=== PATIENT | female | born 1940 | race Caucasian/White ===

== ENCOUNTER → 2016-09-01 | Outpatient (CLI) | payer OTHER ==
--- NOTE | 2016-09-01 09:32 | US ---
Ultrasound of the Abdomen Limited History: Alcoholic cirrhosis. Ascites. Comparison: January 2016 Findings: Gallbladder: Multiple mobile gallstones identified near the gallbladder neck region. No gallbladder W all thickening, or pericholecystic fluid. Common bile duct is 3 mm in diameter which is normal. Liver: Coarse in echogenicity without definite focal lesions and measures 16 cm in length. No ascites . Main portal vein is patent. Renal: Right kidney measures 10 x 5 x 5 cm without hydronephrosis. Pancreas: Homogeneous without peripancreatic fluid. Aorta: Visualized upper abdominal aorta demonstrates no aneurysm. Impression: 1. Cholelithiasis with multiple mobile gallstones. 2. No gallbladder wall thickening, pericholecystic fluid or biliary ductal dilation. 3. Coarse hepatic parenchyma suggesting cirrhosis without evidence of definite focal masses, hepatome nadiya, or ascites.
== END ==
LOC: FIMAGING 08:21
PROVIDERS: ATTEND Internal Medicine
DX: K80.20 Calculus of gallbladder without cholecystitis without obstruction (principal); K76.89 Other specified diseases of liver

== ENCOUNTER → 2017-05-18 | Outpatient (CLI) | payer OTHER | LOC: FIMAGING 07:18 | PROVIDERS: ATTEND Internal Medicine | DX: K70.31 Alcoholic cirrhosis of liver with ascites (principal); K80.20 Calculus of gallbladder without cholecystitis without obstruction ==

== ENCOUNTER → 2017-05-19 | Outpatient (CLI) | payer OTHER | LOC: FIMAGING 14:18 | PROVIDERS: ATTEND Internal Medicine Geriatric Medicine | DX: Z12.31 Encounter for screening mammogram for malignant neoplasm of breast (principal); Z80.3 Family history of malignant neoplasm of breast | CPT/HCPCS: G0202 ==

== ENCOUNTER → 2017-10-27 | Outpatient (CLI) | payer OTHER | LOC: FIMAGING 09:39 | PROVIDERS: ATTEND Internal Medicine | DX: K70.30 Alcoholic cirrhosis of liver without ascites (principal); K80.20 Calculus of gallbladder without cholecystitis without obstruction ==

== ENCOUNTER 2017-11-07 15:35 | Observation (INO) | payer OTHER ==
--- NOTE | 2017-11-07 15:47 | CPEKG ---
Heart Rate: 73 RR Interval: 822 P-R Interval: 180 QRSD Interval: 108 QT Interval: 464 QTC Interval: 512 P [place]: 45 QRS [place]: -22 T Wave [place]: 35 EKG Severity - ABNORMAL ECG - EKG Impression: SINUS RHYTHM Electronically Signed By: Alexandro Gerard 07-Nov-2017 16:01:21
[2017-11-07] MEDS ORDERED: NS 1,000 ML IV ONE (15:48)
--- NOTE | 2017-11-07 15:55 | EDPHY ---
H & P Stated Complaint: fell 45mins ago. was walking with unsteady gate. now has slurred speech Time Seen by Provider: 11/07/17 15:41 HPI/ROS: CHIEF COMPLAINT: Slurred speech HISTORY OF PRESENT ILLNESS: The patient is a 77-year-old female with a history of alcoholism and liver disease who comes to the emergency department with slurred speech and left-sided facial droop. According to her he noticed around 1:00 p.m. That she seemed wobbly and had some slurred speech. She layed down to take a nap. About 45 min ago while getting out of bed she fell and at this point decided to bring her to the ER. They deny bleeding disorders. She is not on anticoagulants. No external signs of trauma. Denies headache. No vomiting. No chest pain. REVIEW OF SYSTEMS: Constitutional: denies: chills, fever, recent illness, recent injury EENTM: denies: blurred vision, double vision, nose congestion Respiratory: denies: cough, shortness of breath Cardiac: denies: chest pain, irregular heart rate, lightheadedness, palpitations Gastrointestinal/Abdominal: denies: abdominal pain, diarrhea, nausea, vomiting, blood streaked stools Genitourinary: denies: dysuria, frequency, hematuria, pain Musculoskeletal: denies: joint pain, muscle pain Skin: denies: lesions, rash, jaundice, bruising Neurological: See HPI Hematologic/Lymphatic: denies: blood clots, easy bleeding, easy bruising Immunologic/allergic: denies: HIV/AIDS, transplant EXAM: GENERAL: Well-appearing, well-nourished and in no acute distress. HEAD: Atraumatic, normocephalic. EYES: Pupils equal round and reactive to light, extraocular movements intact, sclera anicteric, conjunctiva are normal. ENT: TMs normal, nares patent, oropharynx clear without exudates. Moist mucous membranes. NECK: Normal range of motion, supple without lymphadenopathy or JVD. LUNGS: Breath sounds clear to auscultation bilaterally and equal. No wheezes rales or rhonchi. HEART: Regular rate and rhythm without murmurs, rubs or gallops. ABDOMEN: Soft, nontender, normoactive bowel sounds. No guarding, no rebound. No masses appreciated. BACK: No CVA tenderness, no spinal tenderness, step-offs or deformities EXTREMITIES: Normal range of motion, no pitting or edema. No clubbing or cyanosis. NEUROLOGICAL: Left-sided facial droop and slurred speech very slight pronator drift on the left. Gait not tested. 5/5 strength, normal movement in all extremities, normal sensation in all 4 extremities NIH stroke score PSYCH: Normal mood, normal affect. SKIN: Warm, dry, normal turgor, no visible rashes or lesions. Source: Patient - Personal History Current Tetanus/Diphtheria Vaccine: Unsure Current Tetanus Diphtheria and Acellular Pertussis (TDAP): Unsure - Medical/Surgical History Hx Asthma: No Hx Chronic Respiratory Disease: No Hx Diabetes: No Hx Cardiac Disease: Yes Hx Renal Disease: No Hx Cirrhosis: No Hx Alcoholism: No Hx HIV/AIDS: No Hx Splenectomy or Spleen Trauma: No Other PMH: MEDICAL- HTN, HLD, HYPOTHYROID. SURGICAL- HYSTERECTOMY, ORTHO, PROLAPSED INTESETINE - Social History Smoking Status: Never smoked Constitutional: Initial Vital Signs Temperature (C) 36.2 C 11/07/17 15:55 Heart Rate 75 11/07/17 15:55 Respiratory Rate 11 L 11/07/17 15:55 Blood Pressure 122/70 H 11/07/17 15:55 O2 Sat (%) 97 11/07/17 15:55 O2 Delivery Mode Room Air Allergies/Adverse Reactions: hydrocodone Allergy (Unknown, Verified 11/07/17 15:37) Home Medications: Medication Instructions Recorded Cholecalciferol Vit D3 [Vitamin D3 2,000 units PO DAILY 11/07/17 (*)] Furosemide [Lasix 20 MG (*)] 20 mg PO DAILY 11/07/17 Herbals/Supplements -Info Only 1 ea PO DAILY 11/07/17 Levothyroxine [Synthroid 75 mcg 75 mcg PO DAILY06 11/07/17 (*)] Pantoprazole Sodium [Protonix 40mg 40 mg PO DAILY 11/07/17 (*)] Rifaximin [Xifaxan] 550 mg PO BID 11/07/17 Spironolactone [Aldactone 50 MG 50 mg PO DAILY 11/07/17 (RX)] Medical Decision Making - Diagnostics EKG Interpretation: An EKG obtained and was read and documented in trace view. Please see trace view for full reading and report. Sinus rhythm, no acute ischemic changes Imaging Results: Imaging Impressions Chest X-Ray 11/07/17 15:42 Impression: Atherosclerotic disease. Nothing acute identified. Head CT 11/07/17 15:42 Impression: 1. No acute intracranial findings. 2. Diffuse cerebral atrophy, with periventricular and subcortical low attenuation consistent with chronic microvascular ischemic gliosis. Findings discussed with Alexandro Gerard M.D., on November 07, 2017 at 1600. Head CTA 11/07/17 15:47 Impression: 1. No acute vascular findings. If symptoms persist and clinical suspicion warrants, consider MRI. 2. 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 3. 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 4. Additional findings, as above. Stenoses are calculated using [place] Symptomatic Carotid Endarterectomy Trial (NASCET) criteria. Findings discussed with Alexandro Gerard M.D., on November 07, 2017 at 1630. Neck CTA 11/07/17 15:47 Impression: 1. No acute vascular findings. If symptoms persist and clinical suspicion warrants, consider MRI. 2. 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 3. 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 4. Additional findings, as above. Stenoses are calculated using [place] Symptomatic Carotid Endarterectomy Trial (NASCET) criteria. Findings discussed with Alexandro Gerard M.D., on November 07, 2017 at 1630. Imaging: Discussed imaging studies w/ manager call center Radiologist ED Course/Re-evaluation: Very shortly after patient arrival I spoke with Dr. Elliott from [facility]. He will evaluate the patient when she gets back from CT scan. The patient's noncontrast is negative. They did not do the angio because her creatinine is slightly elevated. I requested that they do it any ways. We will hydrate her. Also spoke further with the who states that he saw her acting normally at noon but that around 12:30 was when she 1st had some imbalance. They deny any alcohol use today. 4:[address] Elliott feels that the patient is not a tPA candidate. There is not clear time of onset. The last time her interactive her and her was around 9:00 a.m. Before he went to work out. Her CT angio is negative other than a small incidental aneurysm. He recommends aspirin admission and MRI. 4:35 p.m. I discussed the case with Dr. Yolanda Roque who will admit to the medical service. 4:50 p.m. Despite telling me earlier that she had not been drinking today alcohol level is 312. Differential Diagnosis: Partial list of the Differential diagnosis considered include but were not limited to; CVA, hemorrhage, aneurysm, hypoglycemia, intoxication and although unlikely based on the history and physical exam, I also considered infection, trauma. Critical Care Time: Critical care time spent by me, Dr. Gerard exclusive with this patient was 45 minutes, exclusive of the PA time exclusive of procedures. The organ system that was at risk was neurologic and I gave diagnosis, consultation and admission to prevent worsening of the patient's condition - Data Points Laboratory Results: Laboratory Results 11/07/17 15:47 11/07/17 15:47 11/07/17 11/07/17 11/07/17 15:48 15:47 15:47 WBC RBC Hgb POC Hgb 11.2 gm/dL L gm/dL (12.6-16.3) Hct POC Hct 33 % L % (38-47) MCV MCH MCHC RDW Plt Count MPV Neut % (Auto) Lymph % (Auto) [place] % (Auto) Eos % (Auto) Baso % (Auto) Nucleat RBC Rel Count Absolute Neuts (auto) Absolute Lymphs (auto) Absolute Monos (auto) Absolute Eos (auto) Absolute Basos (auto) Absolute Nucleated RBC Immature Gran % Immature Gran # PT INR APTT POC Sodium 137 mEq/L mEq/L (135-145) Sodium 139 mEq/L mEq/L (135-145) POC Potassium 3.9 mEq/L mEq/L (3.3-5.0) Potassium 4.3 mEq/L mEq/L (3.5-5.2) POC Chloride 101 mEq/L mEq/L (97-110) Chloride 101 mEq/L mEq/L (97-110) Carbon Dioxide 18 mEq/l L mEq/l (22-31) Anion Gap 20 mEq/L H mEq/L (8-16) POC BUN 26 mg/dL H mg/dL (7-23) BUN 26 mg/dL H mg/dL (7-23) Creatinine 1.4 mg/dL H mg/dL (0.6-1.0) POC Creatinine 1.7 mg/dL H mg/dL (0.6-1.0) Estimated GFR 36 Glucose 91 mg/dL mg/dL (70-100) POC Glucose 101 mg/dL H mg/dL (70-100) Calcium 9.0 mg/dL mg/dL (8.5-10.4) Total Bilirubin 3.8 mg/dL H mg/dL (0.1-1.4) Conjugated Bilirubin 2.3 mg/dL H mg/dL (0.0-0.5) Unconjugated Bilirubin 1.5 mg/dL H mg/dL (0.0-1.1) AST 81 IU/L H IU/L (14-46) ALT 55 IU/L H IU/L (9-52) Alkaline Phosphatase 73 IU/L IU/L (38-126) Troponin I < 0.012 ng/mL ng/mL (0.000-0.034) Total Protein 7.4 g/dL g/dL (6.3-8.2) Albumin 3.4 g/dL L g/dL (3.5-5.0) Ethyl Alcohol 312 mg/dL H mg/dL (0-10) 11/07/17 11/07/17 15:47 15:47 WBC 5.34 10^3/uL 10^3/uL (3.80-9.50) RBC 3.61 10^6/uL L 10^6/uL (4.18-5.33) Hgb 10.0 g/dL L g/dL (12.6-16.3) POC Hgb Hct 30.7 % L % (38.0-47.0) POC Hct MCV 85.0 fL fL (81.5-99.8) MCH 27.7 pg L pg (27.9-34.1) MCHC 32.6 g/dL g/dL (32.4-36.7) RDW 18.9 % H % (11.5-15.2) Plt Count 77 10^3/uL L 10^3/uL (150-400) MPV 11.7 fL fL (8.7-11.7) Neut % (Auto) 60.1 % % (39.3-74.2) Lymph % (Auto) 26.2 % % (15.0-45.0) [place] % (Auto) 7.9 % % (4.5-13.0) Eos % (Auto) 4.1 % % (0.6-7.6) Baso % (Auto) 1.3 % % (0.3-1.7) Nucleat RBC Rel Count 0.0 % % (0.0-0.2) Absolute Neuts (auto) 3.21 10^3/uL 10^3/uL (1.70-6.50) Absolute Lymphs (auto) 1.40 10^3/uL 10^3/uL (1.00-3.00) Absolute Monos (auto) 0.42 10^3/uL 10^3/uL (0.30-0.80) Absolute Eos (auto) 0.22 10^3/uL 10^3/uL (0.03-0.40) Absolute Basos (auto) 0.07 10^3/uL 10^3/uL (0.02-0.10) Absolute Nucleated RBC 0.00 10^3/uL 10^3/uL (0-0.01) Immature Gran % 0.4 % % (0.0-1.1) Immature Gran # 0.02 10^3/uL 10^3/uL (0.00-0.10) PT 18.7 SEC H SEC (12.0-15.0) INR 1.55 H (0.83-1.16) APTT 37.6 SEC SEC (23.0-38.0) POC Sodium Sodium POC Potassium Potassium POC Chloride Chloride Carbon Dioxide Anion Gap POC BUN BUN Creatinine POC Creatinine Estimated GFR Glucose POC Glucose Calcium Total Bilirubin Conjugated Bilirubin Unconjugated Bilirubin AST ALT Alkaline Phosphatase Troponin I Total Protein Albumin Ethyl Alcohol Medications Given: Sodium Chloride (Ns) 1,000 mls @ 100 mls/hr IV CONT MADELIN Stop: 11/08/17 03:29 Last Admin: 11/07/17 18:33 Dose: 1,000 mls Discontinued Medications Aspirin (Aspirin Rectal) 300 mg [facility] EDNOW ONE Stop: 11/07/17 16:39 Last Admin: 11/07/17 16:44 Dose: 300 mg Sodium Chloride (Ns) 1,000 mls @ 500 mls/hr IV EDNOW ONE PRN Reason: Protocol Stop: 11/07/17 17:47 Last Admin: 11/07/17 15:56 Dose: 1,000 mls Point of Care Test Results: 11/07/17 15:48 POC Sodium 137 POC Potassium 3.9 POC Chloride 101 POC BUN 26 H POC Creatinine 1.7 H POC Glucose 101 H Departure - Departure Disposition: [facility] Inpatient Acute Clinical Impression: Acute ischemic stroke Condition: Fair
[2017-11-07 16:00] LABS: PLATELET COUNT 77 10^3/uL (150-400)
[2017-11-07] MEDS ORDERED: IOPAMIDOL (ISOVUE 370) 100 ML BTL IV ONE (16:01)
[2017-11-07 16:07] LABS: INR 1.55 (0.83-1.16); PROTIME(PATIENT) 18.7 SEC (12.0-15.0)
[2017-11-07] MEDS ORDERED: ASPIRIN RECTAL 300 MG SUPP PR ONE (16:38)
[2017-11-07] MEDS ORDERED: LORazepam 2 MG/ML INJ IVP PRN (17:20)
[2017-11-07] MEDS ORDERED: LORazepam 1 MG TAB PO PRN (17:20)
[2017-11-07] MEDS ORDERED: ONDANSETRON 4 MG/2 ML VIAL IVP PRN (17:22)
[2017-11-07] MEDS ORDERED: NS 1,000 ML IV SCH (17:30)
--- NOTE | 2017-11-07 18:07 | GHP ---
[f rep st] HISTORY AND PHYSICAL DATE OF ADMISSION: 11/07/2017 CHIEF COMPLAINT: Facial droop and slurred speech. HISTORY OF PRESENT ILLNESS: The patient is a 77-year-old female, who presents to the emergency room when noticed by her to have slurred speech and a left facial droop. He last saw her normal a t 9 a.m. She subsequently went out with some girlfriends whom she calls her "coffee clique" and retu rned home. At that time, noticed by her at 1 p.m. to have some slurred speech. She lied liya n for a nap and woke up at 3 o'clock at which time, she fell and had obvious deficits so they came to the emergency room. Emmett Ruiz was called by the ER and given the timeline, no tPA was indicated. Jeremy márquez was given an aspirin. She adamantly denies any alcohol use and has known alcohol cirrhosis and she quit drinking when she was diagnosed. Despite this, her alcohol level on presentation was 312. On previous admissions she has admitted to us that she drank alcohol during the day while her wa s at work and was not truthful with him regarding her alcohol use. PAST MEDICAL HISTORY: 1. Alcohol cirrhosis. 2. Hypertension. 3. Thrombocytopenia due to cirrhosis. 4. Hyperlipidemia. 5. C diff colitis. 6. Chronic kidney disease. PAST SURGICAL HISTORY: Hysterectomy. MEDICATIONS: Please see computer record for full detailed list. ALLERGIES: Hydrocodone. SOCIAL HISTORY: No smoking. Known history of heavy alcohol use. Denies active use despite having a very positive alcohol level. Lives with her . Previous history of non truthfulness with her regarding alcohol use. REVIEW OF SYSTEMS: Complete review of systems obtained. Review of systems negative for Constitution al, HEENT, GI, Pulmonary, Cardiovascular, , Hematology, Skin, Muscular, Endocrine, Psych except for positives and negatives as in her HPI. FAMILY HISTORY: Positive for colon cancer in her sister in her 40s who eventually of metastatic disease. PHYSICAL EXAMINATION: GENERAL: Well-developed, well-nourished female in no acute distress. VITAL S IGNS: Temperature 36.2, pulse 73, blood pressure 121/58, satting 95% on room air. HEENT: Eye: Nor mal conjunctivae, pupils reactive to light. ENT: Normal ears, nose. Hearing intact. Normal teeth. Oropharynx moist. NECK: Trachea midline. No thyromegaly. CHEST: Normal respiratory effort. JAH NGS: Clear to auscultation bilaterally. CARDIOVASCULAR: Regular rhythm. No murmur. No extremity edema. ABDOMEN: Soft, nontender. No hepatosplenomegaly. SKIN: Warm, dry, intact. No rash. She has spider telangiectasias on her chest. MUSCULOSKELETAL: No cyanosis or clubbing. Strength is 5/5 upper and lower extremities. NEURO: Cranial nerve exam she has an obvious left facial droop. Her tongue deviates to the right. She has very slurred speech. Somewhat rambling and nonsensical. Norm al sensation to light touch. PSYCH: Awake, alert, answers questions. Rambling. Seems somewhat dis organized in thought. Poor historian, cooperative. LABORATORY DATA: White count 5.34, hematocrit 30.7, platelets 77. Sodium 137, potassium 3.9, chlori de 101, bicarb 18, BUN 26, creatinine 1.4, glucose 101. Troponins negative. INR is 1.55. Alcohol l evel is 312. LFTs are pending. EKG viewed by me. My personal interpretation is normal sinus rhythm with no ST-T wave changes. IMAGING DATA: Chest x-ray is negative. Head CT is negative. CT angiogram of the head and neck show s an incidental 4 mm anterior communicating artery aneurysm. ASSESSMENT/PLAN: 1. Acute stroke. She has an obvious left facial droop and tongue deviation so I do think there has been an acute neurological event. Of course, this is difficult to tease out with slurred speech that may be present due to her alcohol intoxication. Will check an MRI of her brain. Will watch her on telemetry and check an echocardiogram. Will start her on a baby aspirin which I think will need to b e continued despite her known chronic thrombocytopenia. Will check a lipid panel in the morning. Ho wever, she has been on a statin in the past and had to be discontinued due to her alcohol cirrhosis. 2. Alcohol intoxication. She adamantly denied any alcohol use in front of her , but I think we need to re discuss this with her when he is not present. Clearly she has ongoing alcohol use and is not truthful with him regarding her intake. Will start intravenous thiamine and place her on a [facility] Withdrawal Assessment protocol. Clearly slurred speech may have a contribution of a lcohol intoxication. 3. Acute anterior communicating artery brain aneurysm. This is an incidental finding on CTA. She s hould follow up with Neurosurgery as an outpatient. 4. Alcohol cirrhosis. Continue Lasix and spironolactone. She is also on Rifaximin for presumed his tory of hepatic encephalopathy. Will check an ammonia in the morning. 5. Chronic kidney disease. Her creatinine is at baseline. She received intravenous contrast in the emergency room. Will give her a liter of intravenous fluid to flush the kidneys, but subsequent to that, resume her usual diuretics. CODE STATUS: Full. ADMISSION STATUS: 1. Will admit to observation. Reevaluate tomorrow regarding ongoing need for hospitalization. 2. DVT prophylaxis. Will avoid pharmacologic prophylaxis as she has thrombocytopenia and an elevate d INR at baseline, and we are starting an aspirin for stroke prevention as discussed above. /[id number]/MODL
[2017-11-07] MEDS: RIFAXIMIN 550 MG TAB PO SCH (23:09)
[2017-11-08 04:54] LABS: PLATELET COUNT 64 10^3/uL (150-400)
[2017-11-08] MEDS ORDERED: LEVOTHYROXINE 75 MCG TAB PO SCH (06:00)
[2017-11-08] MEDS ORDERED: FUROSEMIDE 20 MG TAB PO SCH (09:00)
[2017-11-08] MEDS ORDERED: SPIRONOLACTONE 50 MG TAB PO SCH (09:00)
[2017-11-08] MEDS ORDERED: PANTOPRAZOLE SODIUM 40 MG TAB PO SCH (09:00)
[2017-11-08] MEDS ORDERED: THIAMINE HCL 500 MG in NS 500 ML IV SCH (09:00)
[2017-11-08] MEDS ORDERED: ASPIRIN 81 MG CHEWABLE TAB PO SCH (09:00)
--- NOTE | 2017-11-08 09:20 | GCON ---
[f rep st] CONSULTATION NEUROLOGIC CONSULTATION REFERRING PHYSICIAN: Yolanda Roque MD HISTORY OF PRESENT ILLNESS: The patient is a 77-year-old woman who I am asked to see in neurologic c onsultation regarding acute neurologic symptoms that started yesterday. History is obtained from the patient and her as well as review of the emergency room records and the history and physical from Dr. Roque. Basically, the patient has a long history of struggling with alcoholism. Yesterday , she said that she was noticed to have some slurred speech and some drooping of her left face by her . He had seen her in her normal state around 9 a.m. and then the patient says she had tried to move from the couch to the coffee table and fell. She said she could not get up. The falling was around 3 p.m.. Earlier around 1 p.m., there was some slurring of speech that the had notice d. She came to the emergency room as a potential stroke alert and was ruled out based on some uncert ainty of the exact timeline and she did not have any large vessel occlusions. She did not receive tP A and was given aspirin. She had initially denied alcohol use, but then said she did drink some the day of this event and told me she had just a little bit of gin with a soft drink, but her blood alcoh ol level was 312, and inconsistent with just a small amount of alcohol. She does have a history of a lcoholic cirrhosis. She then later was able to say that she was uncomfortable admitting the alcohol use and had been not telling her about that apparently. Since admission, she has felt better. She does not think her speech is still abnormal. She does not describe focal numbness or weakness. When she could not get up yesterday, she was not aware of exac tly why. PAST MEDICAL HISTORY: 1. Alcoholic cirrhosis and chronic alcoholism with some continuing alcohol consumption to excessive amounts. 2. Hypertension has been minimal. 3. Chronic thrombocytopenia. 4. Hyperlipidemia. 5. Chronic kidney disease. 6. She has a history of hysterectomy. ALLERGIES: Hydrocodone. SOCIAL HISTORY: Alcoholism with ongoing challenges. No smoking currently. FAMILY HISTORY: Family history of colon cancer. REVIEW OF SYSTEMS: Otherwise, an unremarkable 10-point review of systems. PHYSICAL EXAMINATION: VITAL SIGNS: Blood pressure is 134/60. She was not orthostatic. Heart rate o f 83, pulse of 16, respirations 16, temperature 37. GENERAL: In general, she is a well-developed wo man lying in the bed in no acute distress. NECK: Supple with no bruits or masses. CARDIAC: Regula r rate and rhythm. No murmur. NEUROLOGIC: She is awake, alert, and oriented to person, place, and time and general situation. Pupils are 3 mm and reactive. Extraocular movements are intact. No vis ual field loss. Normal facial sensation and movement. As best I can tell, except for very subtle we akness of the left corner of the mouth, but I am not sure how pathologic that actually is. The motor exam reveals normal muscle bulk and tone with 5/5 strength. Sensation is preserved for temperature and light touch. She is able to stand independently. Reflexes 1+. LABORATORY STUDIES: White count currently of 3,000, platelet count of 64,000, hematocrit is 25%, blo od chemistry shows some hyperbilirubinemia with normal sodium. BUN 23, creatinine 1.2. Mild elevati on of liver enzymes at 81 and 55 for the AST and ALT, respectively. Albumin is low at 2.6. Total ch olesterol 122, LDL cholesterol of 79, HDL 24. Her tox screen showed the alcohol level of 312. INR e levated at 1.55. The echocardiogram results are pending, but has been performed. CT angiogram of the head and neck does not reveal any hemodynamically significant stenosis. 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 Brain MRI and head CT were obtained, neither of which shows evidence of acute stroke or hemorrhage, b ut significant atrophy and white matter disease is present. No arrhythmias on monitoring so far. IMPRESSION: Today's 70 minute total floor time consisted of [id number] discussion of greater than 50% of that time as well as evaluation of her condition and strategies and differential diagnostic di scussions. The patient might have experienced transient ischemic attack, but it is very hard to say at this point. The negative MRI and CT argue against acute stroke and the subtlety of the left lower facial asymmetry is just that. She has risk factors certainly for stroke. She is intoxicated by he r blood alcohol level of 310 and clearly has some more challenges to deal with, with regard to that. This alone could contribute to having some slurred speech and some of her trouble getting up from th e ground without focal features. There are no significant stenoses on the CT angiogram. The inciden michelle finding of the small anterior communicating artery aneurysm can be monitored with a followup scan in about 1 year. There are no signs of alcohol withdrawal at this point, but that has to be monitor ed per the hospitalist team. She clearly needs more support for ceasing her alcohol use with the end -organ damage she already has and ongoing risk factors. Daily aspirin would be appropriate for adriano bell stroke prophylaxis. I would not add a statin at this point for her LDL level of 78. She has li nik disease as well, which would be a relative contraindication. Once she is cleared by the therapy group, then she can have disposition which will most likely be home, and then have follow up with me in the office in 1 month to monitor her progress to make sure she is making an ongoing recovery. Her NIH stroke scale would be a 1 based on the subtle left facial droop. /[id number]/MODL
[2017-11-08] MEDS: RIFAXIMIN 550 MG TAB PO SCH (10:36)
--- NOTE | 2017-11-08 12:06 | ECHO ---
[email or web address] [address] [address] Main: [phone] Fax: Transthoracic Echocardiogram Name: MARK CARTER MR#: [id number] Study Date: 11/08/2017 Study Time: 07:44 AM Date of : 1940 Age: 77 year(s) Height: 167.6 cm (66 in.) Weight: 68.04 kg (150 lb.) BSA: 1.77 m2 Gender: Female Examination: Echo Indication: ISCHEMIC STROKE Image Quality: Adequate Contrast: Requested by: Yolanda Roque BP: 104 mmHg/51 mmHg Heart Rate: Rhythm: Indication: ISCHEMIC STROKE Procedure Staff Skin Carver: Lucille Ndiaye RDCS Reading Physician: Brian Merino MD Requesting Provider: Conclusions: Normal study Measurements: Chambers Valvular Assessment AV/MV Valvular Assessment TV/PV Normal Normal Normal Name Value Range Name Value Range Name Value Range Ao Ninfa (2D): 3.1 cm (1.4 cm-2.6 AV Vmax: 1.76 m/s (1 m/s-1.7 TR Vmax: 2.62 mm/s ( - ) cm) m/s) TR PGmax: 27 mmHg ( - ) IVSd (2D): 1.1 cm (0.6 cm-1.1 AV maxP mmHg ( - ) syst. PAP: 32 mmHg ( - ) cm) AV meanP mmHg ( - ) PV Vmax: 1.59 m/s (0.6 m/s-0.9 LVDd (2D): 4.7 cm (3.9 cm-5.3 LVOT Vmax: 1.38 m/s (0.7 m/s-1.1 m/s) cm) m/s) PV PGmax: 10 mmHg ( - ) LVDs (2D): 3.3 cm (2.1 cm-4 DI (Vmax): 3.0 cm2 ( - ) cm) DI (VTI): 3.0 cm ( - ) LVPWd (2D): 1.1 cm ( - ) MV E Vmax: 0.84 m/s ( - ) LVOTd 2.2 cm 2.2 cm mm MV A Vmax: 0.98 m/s ( - ) LVEF (BP): 68 % (>=55 %) MV E/A: 0.86 ( - ) RVDd(2D): 3.2 cm (1.9 cm-3.8 MV PHT: 0.060 s ( - ) cmmm) MVA (PHT): 3.7 s ( - ) Continued Measurements: Chambers Valvular Assessment AV/MV Valvular Assessment TV/PV Name Value Name Value Name Value LADs: 4.1 cm MV DecTime: 190 m/s CVP (est.): 5 mmHg LADs Lon.5 cm MV E/E' Septal: 9.80 LA Area: 20.3 cm2 MV E/E' Lateral: 6.30 LA Volume: 64 ml LA Volume Index: 36.2 ml/m2 RA Area: 14.5 cm2 Patient: MARK CARTER Study Date: 11/08/2017 Page 1 of 2 07:44 AM Additional Vessels Name Value Ao Ascendin.1 cm Inferior Vena Cava: 1.4 cm Findings: Left Ventricle: Normal size left ventricle. No LV hypertrophy. Normal global systolic LV function. EF is 68 %. No regional wall motion abnormality. Grade 1 diastolic dysfunction (abnormal relaxation). Right Ventricle: Normal size right ventricle. Normal RV function. Left Atrium: The left atrium is normal in size. An agitated saline study was performed and was negative for intracardiac shunting. Right Atrium: The right atrium is normal in size. Mitral Valve: The mitral valve is normal in appearance and function. Mild mitral valve regurgitation is present. No mitral stenosis is present. Aortic Valve: The aortic valve is normal in appearance and function. No aortic valve stenosis is present. Mild aortic valve regurgitation is present. Tricuspid Valve: The tricuspid valve is normal in appearance and function. Mild tricuspid regurgitation is present. The pulmonary artery pressure is normal. Right ventricular systolic pressure measures 32mmHg. Pulmonic Valve: The pulmonic valve is normal in appearance and function. There is no pulmonic regurgitation seen. Aorta: The aorta is normal. IVC: The IVC is normal sized. Pericardium: No pericardial effusion. No pleural effusion. (No Signature Object) Patient: MARK CARTER Study Date: 11/08/2017 Page 2 of 2 07:44 AM [id number]
[2017-11-08 12:50] VITALS: BP 124/67
--- NOTE | 2017-11-08 14:49 | HOSPPROG ---
Hospitalist Progress Note Assessment/Plan: 77 yo F w sluured speech, facial droop and not a stroke home today see dc summary Subjective: mri neg for stroke. anxious for dc Objective: Vital Signs Temp Pulse Resp BP Pulse Ox 37.0 C 89 19 124/67 H 93 11/08/17 12:00 11/08/17 12:00 11/08/17 12:00 11/08/17 12:00 11/08/17 12:00 Laboratory Results 11/08/17 04:44 11/08/17 04:44 11/07/17 11/08/17 11/09/17 05:59 05:59 05:59 Intake Total 2049 Balance 2049 PT 18.7 SEC (12.0-15.0) H 11/07/17 15:47 INR 1.55 (0.83-1.16) H 11/07/17 15:47 - Physical Exam Constitutional: no apparent distress, appears nourished Eyes: PERRL, anicteric sclera Ears, Nose, Mouth, Throat: moist mucous membranes, hearing normal Cardiovascular: regular rate and rhythym, no murmur, rub, or gallop Respiratory: no respiratory distress, no rales or rhonchi Gastrointestinal: normoactive bowel sounds Genitourinary: no bladder fullness Skin: warm, normal color Musculoskeletal: full muscle strength Neurologic: other (L facial droop, mild, but o/w normal exam) Psychiatric: interacting appropriately, not anxious ICD10 Worksheet Patient Problems: Problems Problem Status Onset Acute ischemic stroke Acute C. difficile colitis Acute GI bleed Acute
--- NOTE | 2017-11-08 15:10 | ASMTCMCOM ---
CM Note CM Note Notes: Met with patient and regarding discharge plan of care. Patient lives at home with her . We discussed the possibility of HHC upon discharge, patient and refuse despite CMs attempt to educate them on benefit. Inpatient Rehab has signed off, recommending home. CM available for any changes. Current Plan: Home with Date Signed: 11/08/2017 03:10 PM Electronically Signed By:Shari Floyd RN
--- NOTE | 2017-11-08 15:17 | GDS ---
[f rep st] DISCHARGE SUMMARY DISCHARGE DIAGNOSES: 1. Alcohol intoxication. 2. Cirrhosis. 3. Left facial droop. 4. 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 Please see admission history and physical by Dr. Yolanda Roque. HOSPITAL COURSE: The patient presented with slurred speech, which is reasonably attributable to her blood alcohol level of 312. She also had a left-sided facial droop that appeared to be her lower fac e, predominantly consistent with a central defect. She had CTA of the head and neck revealing no lar ge vessel occlusion. She had a brain MRI showing no convincing evidence for stroke. She had no even ts on telemetry, normal echocardiogram. This facial droop was still present, but reduced on the day following her hospitalization. This represents TIA versus non-neurovascular event. The patient was advised to follow up with Neurosurgery for evaluation of her aneurysm. She was start ed on a baby aspirin daily and advised to use caution with alcohol. It sounds like she struggled wit h alcohol use for a long period of time. The family was present and demonstrated understanding of is plan. The patient has an LDL of 78, and given her liver disease, statin was felt to be a risk gre ater than benefit. It was, therefore, not advised. /[id number]/MODL
[2017-11-10] MEDS ORDERED: THIAMINE HCL 100 MG TAB PO SCH (17:20)
== END 2017-11-08 15:21 | disposition home or self-care (01) ==
LOC: F3N 17:30
PROVIDERS: ADMIT Internal Medicine; ATTEND Internal Medicine
DX: F10.129 Alcohol abuse with intoxication, unspecified (principal); K70.30 Alcoholic cirrhosis of liver without ascites; R29.810 Facial weakness; I67.1 Cerebral aneurysm, nonruptured; Q28.2 Arteriovenous malformation of cerebral vessels; I12.9 Hypertensive chronic kidney disease with stage 1 through stage 4 chronic kidney disease, or unspecified chronic kidney disease; N18.9 Chronic kidney disease, unspecified; I25.10 Atherosclerotic heart disease of native coronary artery without angina pectoris; E78.5 Hyperlipidemia, unspecified; E03.9 Hypothyroidism, unspecified; D69.6 Thrombocytopenia, unspecified; Z80.0 Family history of malignant neoplasm of digestive organs; Z90.710 Acquired absence of both cervix and uterus; Z88.6 Allergy status to analgesic agent
CPT/HCPCS: 70450; 70496; 70498; 70551; 71045; 92610; 93005; 93306; 97165; 99291; G0378; G8987; G8988; G8989; G8996; G8997; G8998; J3411; Q9967; 82947-QW; G0480

== ENCOUNTER → 2018-04-28 | Outpatient (CLI) | payer OTHER | LOC: FIMAGING 08:52 | PROVIDERS: ATTEND Internal Medicine | DX: K70.30 Alcoholic cirrhosis of liver without ascites (principal); K76.0 Fatty (change of) liver, not elsewhere classified; K80.20 Calculus of gallbladder without cholecystitis without obstruction ==

== ENCOUNTER → 2018-11-01 | Outpatient (CLI) | payer OTHER | LOC: FIMAGING 08:25 | PROVIDERS: ATTEND Internal Medicine | DX: K74.60 Unspecified cirrhosis of liver (principal); K80.20 Calculus of gallbladder without cholecystitis without obstruction ==

== ENCOUNTER → 2018-12-05 | Outpatient (CLI) | payer OTHER | LOC: FIMAGING 10:37 | PROVIDERS: ATTEND Neurological Surgery | DX: I67.1 Cerebral aneurysm, nonruptured (principal) | CPT/HCPCS: 82565-PO ==

== ENCOUNTER → 2019-01-25 | Outpatient (CLI) | payer OTHER | LOC: FIMAGING 08:48 ==

== ENCOUNTER 2019-01-28 13:45 | Emergency (ER) | payer OTHER | END 2019-01-28 16:02 | disposition home or self-care (01) ==